=== PATIENT | female | born 1995 | race Caucasian/White ===

== ENCOUNTER 2020-07-01 06:23 | Observation (INO) | payer OTHER, SELFPAY ==
[2020-07-01] MEDS ORDERED: ONDANSETRON 4 MG/2 ML VIAL ONE (07:16)
[2020-07-01] MEDS ORDERED: MORPHINE 4 MG/ML SYR ONE ×2 (07:16→09:27)
[2020-07-01 07:41] LABS: Absolute Lymphocytes (CBC) 2.1 K/uL (0.7-4.9); Basophils % 0.6 % (0-1.3); Hematocrit 39.5 % (36.0-45.0); Lymphocytes % 22.9 % (15.3-44.8); MPV 11.4 fL (7.6-11.3); RBC Red Blood Cell Count 4.44 M/uL (3.86-4.86)
[2020-07-01 07:53] LABS: ALT/SGPT 10 U/L (12-78); AST/SGOT 9 U/L (15-37); Albumin 3.9 g/dL (3.4-5.0); Alkaline Phosphatase 49 U/L (45-117); BUN Blood Urea Nitrogen 15 mg/dL (7-18); Bicarbonate 27 mmol/L (21-32); Bilirubin Direct < 0.1 mg/dL (0-0.2); Bilirubin Total 0.3 mg/dL (0.2-1.0); Glucose Level 86 mg/dL (74-106); Lipase 153 U/L (73-393); Protein, Total 7.4 g/dL (6.4-8.2); Sodium Level 140 mmol/L (136-145)
--- NOTE | 2020-07-01 08:03 | RAD REPORT ---
EXAM DESCRIPTION: CT - Stone Protocol - 07/01/2020 7:39 am CLINICAL HISTORY: Abdominal pain. COMPARISON: None. TECHNIQUE: Computed axial tomography of the abdomen pelvis was obtained without oral or IV contrast. Lack of IV and oral contrast limits evaluation of solid organs, bowel, and vessels. Coronal reformat monica images were obtained and reviewed. All CT scans are performed using dose optimization technique as appropriate and may include automated exposure control or mA/KV adjustment according to patient size. FINDINGS: A renal calculus is not seen. An ureteral calculus is not noted. A bladder calculus is not present. The liver, spleen, and pancreas appear grossly normal. Small calcifications within the adrenal glands are benign There is no evidence of diverticulitis. The appendix not clearly seen. Small amount of free fluid IMPRESSION: Negative for a genitourinary calculus The appendix is not clearly seen. If patient has clinical symptoms to suggest appendicitis then CT sc an with oral contrast and opacification of the terminal ileum/cecum would be recommended
[2020-07-01 08:37] LABS: Platelet Estimate ADEQ; White Blood Cell Scan OK (OK)
[2020-07-01 08:38] LABS: Blood Morphology Comment NOT SEEN (NOT SEEN)
[2020-07-01 08:55] LABS: Urine Blood NEGATIVE (NEG); Urine Glucose NEGATIVE (NEG); Urine Protein NEGATIVE (NEG); Urine Specific Gravity >1.030 (1.005-1.030); Urine pH 5.5 (5.0-7.0)
[2020-07-01] MEDS ORDERED: NICOTINE 21 MG/PAT TD ONE (09:23)
--- NOTE | 2020-07-01 09:39 | ER ---
Nurse's Notes [facility] Name: Pat Gray Age: 25 yrs Sex: Female : 1995 Arrival Date: 07/01/2020 Time: 06:27 Bed 23 Private MD: Diagnosis: Abdominal and pelvic pain Presentation: 07/01 06:45 Chief complaint: Patient states: intermittent abdominal pain in RLQ and R Flank x 1 dm5 weeks. Abdomen tender. Denies nausea vomiting. Coronavirus screen: Client denies travel out of the [place] in the last 14 days. At this time, the client does not indicate any symptoms associated with coronavirus-19. Ebola Screen: Patient negative for fever greater than or equal to 101.5 degrees Fahrenheit, and additional compatible Ebola Virus Disease symptoms Patient denies exposure to infectious person. Patient denies travel to an Ebola-affected area in the 21 days before illness onset. No symptoms or risks identified at this time. Initial Sepsis Screen: Does the patient meet any 2 criteria? HR > 90 bpm. No. Patient's initial sepsis screen is negative. Does the patient have a suspected source of infection? Yes: Dysuria/Frequency/Urgency/UTI. Risk Assessment: Do you want to hurt yourself or someone else? Patient reports no desire to harm self or others. Onset of symptoms was June 24, 2020. 06:45 Method Of Arrival: Ambulatory 5 06:45 Acuity: GLYNN 3 dm5 Triage Assessment: 06:49 General: Appears in no apparent distress. Behavior is calm, cooperative. Pain: dm5 Complains of pain in suprapubic area Pain currently is 8 out of 10 on a pain scale. Pain began 1 week. Neuro: Level of Consciousness is awake, alert, obeys commands, Oriented to person, place, time, situation. Respiratory: Airway is patent. : Reports inability to void, urgency. Derm: Skin is pink, warm \T\ dry. 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 - Social history:: Smoking status: Patient reports the use of cigarette tobacco products, denies chronic smoking, but will smoke occasionally. - Family history:: not pertinent. - Hospitalizations: : No recent hospitalization is reported. Screenin:44 Abuse screen: Denies threats or abuse. Nutritional screening: No deficits noted. em Tuberculosis screening: No symptoms or risk factors identified. Fall Risk None identified. Assessment: 08:00 Reassessment: Patient appears in no apparent distress at this time. Patient and/or em family updated on plan of care and expected duration. Pain level reassessed. Patient is alert, oriented x 3, equal unlabored respirations, skin warm/dry/pink. rates pain 6/10 Patient states symptoms have improved. 09:21 Reassessment: Dr. Gillette at bedside. jl7 10:56 Reassessment: Pt returned from CT. jl7 Vital Signs: 06:45 BP 109 / 55; Pulse 98; Resp 18; Temp 98.1; Pulse Ox 100% on R/A; Weight 58.97 kg; dm5 Height 5 ft. 2 in. (157.48 cm); Pain 8/10; 07:45 BP 91 / 52; Pulse 69; Resp 18; Pulse Ox 99% on R/A; Pain 6/10; em 09:10 BP 103 / 59; Pulse 65; Resp 17; Pulse Ox 100% ; jl7 10:56 BP 122 / 55; Pulse 74; Resp 17; Pulse Ox 100% ; jl7 06:45 Body Mass Index 23.78 (58.97 kg, 157.48 cm) dm5 ED Course: 06:27 Patient arrived in ED. cl3 06:39 Pepito Edward MD is Attending Physician. rn 06:45 Erendira Whitlock RN is Primary Nurse. dm5 06:48 Triage completed. dm5 06:49 Arm band placed on right wrist. Patient placed in an exam room, on a stretcher. dm5 07:08 Attending Physician role handed off by Pepito Edward MD kdr 07:08 Tomi Lopes MD is Attending Physician. kdr 07:16 Initial lab(s) drawn, by ut, sent to lab. Inserted saline lock: 20 gauge in left dm5 antecubital area, using aseptic technique. Blood collected. 07:39 CT Stone Protocol In Process Unspecified. EDMS 07:44 Patient has correct armband on for positive identification. Bed in low position. Call em light in reach. Side rails up X2. 09:37 Luther Abraham DO is Hospitalizing Provider. kdr 10:52 Abdomen In Process Unspecified. EDMS Administered Medications: 07:12 Drug: Zofran (Ondansetron) 4 mg Route: IVP; Site: left antecubital; dm5 07:14 Drug: morphine 4 mg Route: IVP; Site: left antecubital; dm5 09:10 Drug: Nicoderm CQ 21 mg/24 hr 1 patches Route: Transdermal; Site: affected area; jl7 10:57 Follow up: Response: No adverse reaction jl7 09:18 Drug: morphine 4 mg Route: IVP; Site: left antecubital; jl7 09:45 Follow up: Response: No adverse reaction; Pain is decreased jl7 Outcome: 09:38 Decision to Hospitalize by Provider. kdr 13:18 Patient left the ED. iw Signatures: Dispatcher [employer] EDMS Erendira Whitlock, RN RN Tomi Bello MD MD kdr Munoz, Edgar, RN Augusta Lai RN RN iw Pepito Edward MD MD rn Leal, Jahala, RN RN Kenyetta Esteban cl3
--- NOTE | 2020-07-01 09:39 | EDPHYS ---
Physician Documentation [facility] Name: Pat Gray Age: 25 yrs Sex: Female : 1995 Arrival Date: 07/01/2020 Time: 06:27 Bed 23 Private MD: ED Physician Tomi Lopes HPI: 07/01 06:40 This 25 yrs old Female presents to ER via Unassigned with complaints of Low rn Abdominal Pain. 06:40 The patient presents with abdominal pain in the lower abdomen, right lower quadrant, in rn the left lower quadrant. Onset: The symptoms/episode began/occurred 1 week(s) ago. The symptoms do not radiate. Associated signs and symptoms: Pertinent positives: diarrhea, urinary hesitancy , Pertinent negatives: blood in stools, chest pain, fever, vaginal discharge. The symptoms are described as crampy, intermittent. Modifying factors: The symptoms are alleviated by nothing, the symptoms are aggravated by touching the area. Severity of pain: At its worst the pain was moderate in the emergency department the pain is unchanged. The patient has experienced similar episodes in the past. Reports bilateral lower abd pain, for "almost a week". Similar to previous episodes of kidney stones, also has ovarian cysts. No fever. + diarrhea. . 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 - Social history:: Smoking status: Patient reports the use of cigarette tobacco products, denies chronic smoking, but will smoke occasionally. - Family history:: not pertinent. - Hospitalizations: : No recent hospitalization is reported. ROS: 06:40 Constitutional: Negative for fever, chills, and weight loss, Eyes: Negative for injury, rn pain, redness, and discharge, Neck: Negative for injury, pain, and swelling, Cardiovascular: Negative for chest pain, palpitations, and edema, Respiratory: Negative for shortness of breath, wheezing, and pleuritic chest pain, Abdomen/GI: + lower abd pain and diarrhea Back: Negative for injury and pain, : Negative for injury, bleeding, discharge, and swelling, MS/Extremity: Negative for injury and deformity, Skin: Negative for injury, rash, and discoloration, Neuro: Negative for headache, weakness, numbness, tingling, and seizure. Exam: 06:40 Constitutional: This is a well developed, well nourished patient who is awake, alert, rn and in no acute distress. Head/Face: Normocephalic, atraumatic. Cardiovascular: Tachycardic, regular. No pulse deficits. Respiratory: Speaking full sentences. No increased work of breathing, no retractions or nasal flaring. Abdomen/GI: soft, + tenderness across lower abdomen, no rebound Skin: Warm, dry MS/ Extremity: Pulses equal, no cyanosis. Neuro: Awake and alert, GCS 15 Vital Signs: 06:45 BP 109 / 55; Pulse 98; Resp 18; Temp 98.1; Pulse Ox 100% on R/A; Weight 58.97 kg; dm5 Height 5 ft. 2 in. (157.48 cm); Pain 8/10; 07:45 BP 91 / 52; Pulse 69; Resp 18; Pulse Ox 99% on R/A; Pain 6/10; em 09:10 BP 103 / 59; Pulse 65; Resp 17; Pulse Ox 100% ; jl7 10:56 BP 122 / 55; Pulse 74; Resp 17; Pulse Ox 100% ; jl7 06:45 Body Mass Index 23.78 (58.97 kg, 157.48 cm) dm5 MDM: 06:39 Patient medically screened. rn 08:59 ED course: The patient is resting comfortably in bed but continues to have pain in the kdr RLQ. By exam, she has acute appendicitis though the current CT does not support that Dx. Will order CT with PO contrast and have consulted surgery/Nain. 09:38 Data reviewed: vital signs, nurses notes, lab test result(s), radiologic studies. kdr Counseling: I had a detailed discussion with the patient and/or guardian regarding: the historical points, exam findings, and any diagnostic results supporting the discharge/admit diagnosis, lab results, radiology results, the need for further work-up and treatment in the hospital. 07/01 06:40 Order name: Basic Metabolic Panel; Complete Time: 08:49 rn 07/01 06:40 Order name: CBC with Diff; Complete Time: 08:49 rn 07/01 06:40 Order name: Hepatic Function; Complete Time: 08:49 rn 07/01 06:40 Order name: Lipase; Complete Time: 08:49 rn 07/01 06:48 Order name: Urine Dipstick--Ancillary (enter results) [facility] 07/01 06:40 Order name: CT Stone Protocol; Complete Time: 08:49 rn 07/01 06:48 Order name: Urine --Ancillary (enter results); Complete Time: 08:57 [facility] 07/01 06:49 Order name: Urine Dipstick-Ancillary; Complete Time: 08:57 EDDC 07/01 07:57 Order name: CBC Smear Scan; Complete Time: 08:49 EDDC 07/01 09:48 Order name: Procalcitonin kdr 07/01 11:44 Order name: SARS-COV-2 RT PCR [facility] 07/01 06:40 Order name: IV Saline Lock; Complete Time: 07:17 rn 07/01 06:40 Order name: Labs collected and sent; Complete Time: 07:17 rn 07/01 06:40 Order name: Urine Test (obtain specimen); Complete Time: 07:16 rn 07/01 06:40 Order name: Urine Dipstick-Ancillary (obtain specimen); Complete Time: 07:16 rn 07/01 10:45 Order name: Abdomen EDMS Administered Medications: 07:12 Drug: Zofran (Ondansetron) 4 mg Route: IVP; Site: left antecubital; dm5 07:14 Drug: morphine 4 mg Route: IVP; Site: left antecubital; dm5 09:10 Drug: Nicoderm CQ 21 mg/24 hr 1 patches Route: Transdermal; Site: affected area; jl7 10:57 Follow up: Response: No adverse reaction jl7 09:18 Drug: morphine 4 mg Route: IVP; Site: left antecubital; jl7 09:45 Follow up: Response: No adverse reaction; Pain is decreased jl7 Disposition: 07/01/20 09:38 Hospitalization ordered by Luther Abraham for Observation. Preliminary diagnosis is Abdominal and pelvic pain. - Bed requested for Telemetry/MedSurg (observation). - Status is Observation. iw - Condition is Fair. - Problem is new. - Symptoms are unchanged. Signatures: Dispatcher [employer] EDMS Erendira Whitlock, RN RN dm5 Tomi Lopes MD MD kdr Williams, Irene RN Pepito Ochoa MD MD rn Leal, Jahala, RN RN jl7 Corrections: (The following items were deleted from the chart) 07:20 06:40 UA MICROSCOPIC+U.LAB.BRZ ordered. EDMS EDMS 10:42 07:15 CORONAVIRUS+MR.LAB.BRZ ordered. EDMS EDMS 10:45 08:58 Abdomen Pelvis W Con+CT.RAD.BRZ ordered. EDMS EDMS 12:39 09:38 Hospitalization Ordered by Luther Abraham DO for Observation. Preliminary iw diagnosis is Abdominal and pelvic pain. Bed requested for Telemetry/MedSurg (observation). Status is Observation. Condition is Fair. Problem is new. Symptoms are unchanged. kdr 13:18 12:39 07/01/2020 09:38 Hospitalization Ordered by Luther Abraham DO for Observation. iw Preliminary diagnosis is Abdominal and pelvic pain. Bed requested for Telemetry/MedSurg (observation). Status is Observation. Condition is Fair. Problem is new. Symptoms are unchanged. iw
--- NOTE | 2020-07-01 11:06 | RAD REPORT ---
EXAM DESCRIPTION: CT - Abdomen Pelvis Wo Contrast - 07/01/2020 10:52 am CLINICAL HISTORY: Abdominal pain COMPARISON: July 01, 2020 CT TECHNIQUE: Computed axial tomography of the abdomen and pelvis was obtained. Oral contrast was given All CT scans are performed using dose optimization technique as appropriate and may include automated exposure control or mA/KV adjustment according to patient size. FINDINGS: The appendix is opacified with contrast and is normal caliber. Liver, spleen, pancreas appear grossly normal. Small calcifications within the adrenal gland are uzma gn No evidence of diverticulitis. No adnexal mass. Small umbilical hernia. Small amount of free fluid IMPRESSION: No acute abnormality is displayed.
--- NOTE | 2020-07-01 11:45 | P.HP ---
Certification for Inpatient Patient admitted to: Observation With expected LOS: <2 Midnights Patient will require the following post-hospital care: None Practitioner: I am a practitioner with admitting privileges, knowledge of patient current condition, hospital course, and medical plan of care. Services: Services provided to patient in accordance with Admission requirements found in Title 42 Section 412.3 of the Code of Federal Regulations Patient History Date of Service: 07/01/20 Primary Care Provider: Anne-Marie Landa-PCP and Neurology Reason for admission: Right lower quadrant abdominal pain History of Present Illness: 25-year-old female with history of seizure disorder. Patient presented with intractable right lower quadrant abdominal pain with nausea. Patient reports pain started about 1 week ago. Pain has been getting worse. She rated the pain about a 8 out of 10. She was not able to sleep over the past 2 days. She feels the pain is getting worse over time. Patient denies any chest pain, shortness of breath, cough or congestion. Patient came to the ER for further evaluation. White count 9.2, hemoglobin 13.5. Sodium 140, potassium 4.0. BUN of 15, creatinine 0.7 with a GFR greater than 90. LFTs unremarkable. CT scan shows no acute changes. Not able to visualize appendix. Patient was evaluated by surgery in the emergency room. Surgery recommended admission for further evaluation and monitoring. Surgery ordered oral contrast CT for further evaluation. Allergies No Known Allergies Allergy (Unverified 07/01/20 07:19) - Past Medical/Surgical History Diabetic: No -: Seizure disorder -: History of polycystic ovarian disease -: Tobacco abuse Past Surgical History: Patient denies surgical history Psychosocial/ Personal History: Patient is . She has no children. She does not work. - Family History Family History: Reviewed- Non-Contributory - Social History Smoking Status: Light Tobacco smoker (1-9 cigarettes/day) Counseled patient to stop smoking for: less than 10 minutes Smoking therapy provided: Yes Patient receptive to therapy: Yes Alcohol use: No CD- Drugs: No Caffeine use: Yes Place of Residence: Home Review of Systems General: As per HPI Eyes: Unremarkable ENT: Unremarkable Respiratory: Unremarkable Cardiovascular: Unremarkable Gastrointestinal: Nausea, Abdominal Pain, Diarrhea, As per HPI Genitourinary: Unremarkable Musculoskeletal: Unremarkable Integumentary: Unremarkable Neurological: Unremarkable Lymphatics: Unremarkable Physical Examination - Physical Exam General: Alert, In no apparent distress, Oriented x3, Cooperative HEENT: Atraumatic, Normocephalic, PERRLA, Mucous membr. moist/pink Neck: Supple Respiratory: Clear to auscultation bilaterally, Normal air movement Cardiovascular: Normal pulses, Regular rate/rhythm Gastrointestinal: Normal bowel sounds, Soft and benign, Non-distended, No guarding, Tenderness (Abdominal pain noted to the right lower quadrant. Rebound noted.), Rebound Musculoskeletal: No erythema, No tenderness, No warmth Integumentary: No tenderness/swelling, No erythema, No warmth, No cyanosis Neurological: Normal speech, Normal strength at 5/5 x4 extr, Normal tone, Normal affect - Studies Laboratory Data (last 24 hrs) 07/01/20 07:10: WBC 9.2, Hgb 13.5, Hct 39.5, Plt Count 219 07/01/20 07:10: Sodium 140, Potassium 4.0, BUN 15, Creatinine 0.70, Glucose 86, Total Bilirubin 0.3, AST 9 L, ALT 10 L, Alkaline Phosphatase 49, Lipase 153 Assessment and Plan - Plan Impression: Intractable right lower quadrant abdominal pain with nausea suspect acute appendicitis Seizure disorder History of polycystic ovarian disease Plan: Patient will be admitted for further evaluation and treatment. Case discussed with surgery. Will continue with the patient NPO. Continue medication for pain and nausea. Will start IV fluids. Will hold off on antibiotic therapy upon admission so that we can determine whether this his acute appendicitis. Await CT scan with oral contrast to further evaluate. If abnormal or increasing pain, surgery will plan for surgical intervention. Will continue with her seizure medications Depakote and Keppra IV. Await further recommendations from surgery. Discharge Plan: Home Plan to discharge in: 24 Hours - Advance Directives Does patient have a Living Will: No Does patient have a Durable POA for Healthcare: No - Code Status/Comfort Care Code Status Assessed: Yes (Patient full code) Time Spent Managing Pts Care (In Minutes): 55
[2020-07-01 13:37] VITALS: BMI 23.8
[2020-07-01] MEDS ORDERED: D5 0.9 NS 1,000 ML IV SCH (13:40)
[2020-07-01] MEDS ORDERED: ONDANSETRON 4 MG/2 ML VIAL IV PRN (13:40)
[2020-07-01] MEDS ORDERED: ACETAMINOPHEN 650MG/RECT SUPP PR PRN (13:40)
[2020-07-01] MEDS ORDERED: MORPHINE 2 MG/ML SYR IV PRN (13:40)
[2020-07-01] MEDS ORDERED: ACETAMINOPHEN 500 MG TAB PO PRN (13:40)
[2020-07-01 14:06] VITALS: O2SAT 99
[2020-07-01 14:09] VITALS: TEMP 97.8
[2020-07-01] MEDS ORDERED: VALPROATE SODIUM INJ 500 MG in NA CHLORIDE 0.9% 100 ML IV SCH (17:00)
[2020-07-01 17:16] VITALS: BP 103/50
[2020-07-01] MEDS ORDERED: levETIRAcetam 500 MG in NA CHLORIDE 0.9% 100 ML IV SCH (21:00)
[2020-07-01] MEDS ORDERED: FAMOTIDINE 20 MG/2 ML VIAL IV SCH (21:00)
--- NOTE | 2020-07-02 00:31 | P.DS ---
Admission Date: 07/01/20 Discharge Date: 07/02/20 Primary Care Provider: Anne-Marie Landa-PCP and Neurology Disposition: AMA-LEFT AGAINST MEDICAL ADVIC Discharge Condition: GOOD Reason for Admission: Right lower quadrant abdominal pain Consultations: General surgery- Dr. Gillette Procedures: CT abdomen pelvis with oral contrast FINDINGS: The appendix is opacified with contrast and is normal caliber. Liver, spleen, pancreas appear grossly normal. Small calcifications within the adrenal gland are benign No evidence of diverticulitis. No adnexal mass. Small umbilical hernia. Small amount of free fluid IMPRESSION: No acute abnormality is displayed. CT abdomen pelvis with IV contrast FINDINGS: A renal calculus is not seen. An ureteral calculus is not noted. A bladder calculus is not present. The liver, spleen, and pancreas appear grossly normal. Small calcifications within the adrenal glands are benign There is no evidence of diverticulitis. The appendix not clearly seen. Small amount of free fluid IMPRESSION: Negative for a genitourinary calculus The appendix is not clearly seen. If patient has clinical symptoms to suggest appendicitis then CT scan with oral contrast and opacification of the terminal ileum/cecum would be recommended Medical problem list Intractable right lower quadrant abdominal pain with nausea-CT negative for acute appendicitis Seizure disorder History of polycystic ovarian disease Brief History of Present Illness: Patient was admitted to the hospital for intractable right lower quadrant pain with nausea, initial CT scan without oral contrast demonstrated no acute findings but the appendix could not be visualized at that time. Patient was admitted under observation, general surgery evaluated the patient. General surgery recommended NPO with no antibiotics at this time and tell we can clarify whether or not she has acute appendicitis. Hospital Course: Patient was admitted to the hospital for intractable right lower quadrant pain with nausea, initial CT scan without oral contrast demonstrated no acute findings but the appendix could not be visualized at that time. Patient was admitted under observation, general surgery evaluated the patient. General surgery recommended NPO with no antibiotics at this time and tell we can clarify whether or not she has acute appendicitis. CT abdomen pelvis with oral contrast was obtained which demonstrated normal appendix. Patient was to be kept NPO and not on antibiotics overnight for evaluation from surgery in the morning. The patient was not willing to remain NPO and decided to leave the hospital against medical advice. Unfortunately I was not able to assess the patient prior to her departure. Vital Signs/Physical Exam: Temp Pulse Resp BP Pulse Ox 97.8 F 79 16 103/50 L 99 07/01/20 16:00 07/01/20 16:00 07/01/20 16:00 07/01/20 16:00 07/01/20 16:00 Other Physical/Emotional Findings: Patient was not assess prior to discharge. Patient did not wait to speak with me in regards to leaving against medical advice. Laboratory Data at Discharge: WBC 9.2 K/uL (4.3-10.9) 07/01/20 07:10 Hgb 13.5 g/dL (12.0-15.0) 07/01/20 07:10 Hct 39.5 % (36.0-45.0) 07/01/20 07:10 Plt Count 219 K/uL (152-406) 07/01/20 07:10 Sodium 140 mmol/L (136-145) 07/01/20 07:10 Potassium 4.0 mmol/L (3.5-5.1) 07/01/20 07:10 BUN 15 mg/dL (7-18) 07/01/20 07:10 Creatinine 0.70 mg/dL (0.55-1.3) 07/01/20 07:10 Glucose 86 mg/dL (74-106) 07/01/20 07:10 Total Bilirubin 0.3 mg/dL (0.2-1.0) 07/01/20 07:10 AST 9 U/L (15-37) L 07/01/20 07:10 ALT 10 U/L (12-78) L 07/01/20 07:10 Alkaline Phosphatase 49 U/L (45-117) 07/01/20 07:10 Lipase 153 U/L (73-393) 07/01/20 07:10 Home Medications: Divalproex Sodium [Depakote] 1,500 mg PO DAILY 07/01/20 Folic Acid 4 mg PO DAILY 07/01/20 Levetiracetam [Keppra] 1 tab PO DAILY 07/01/20 Patient Discharge Instructions: Patient left AMA Followup: NONE,NONE [Primary Care Provider] - Time spent managing pt's care (in minutes): 30
[2020-07-02] MEDS ORDERED: ENOXAPARIN 40 MG/0.4 ML SQ SCH (09:00)
[2020-07-02] MEDS ORDERED: FOLIC ACID 1 MG in NA CHLORIDE 0.9% 50 ML IV SCH (09:00)
== END 2020-07-01 19:23 | disposition left against medical advice (07) ==
LOC: ER 06:23 → ERHOLD 11:15 → 2ND 12:57
PROVIDERS: ADMIT Family Medicine; ATTEND Family Medicine
DX: R10.31 Right lower quadrant pain (principal); G40.909 Epilepsy, unspecified, not intractable, without status epilepticus; E28.2 Polycystic ovarian syndrome; R11.0 Nausea; Z53.29 Procedure and treatment not carried out because of patient's decision for other reasons; F17.210 Nicotine dependence, cigarettes, uncomplicated; Z20.828 Contact with and (suspected) exposure to other viral communicable diseases
CPT/HCPCS: 36415; 74176; 76377; 80048; 80076; 81003; 81025; 83690; 84145; 85025; 96374; 96375; 99284; J1953; J2270; J2405; J7042; U0003

== ENCOUNTER → 2020-10-12 | Emergency (ER) | payer OTHER | LOC: ER 04:05 | DX: R69 Illness, unspecified (principal); Z53.21 Procedure and treatment not carried out due to patient leaving prior to being seen by health care provider ==